=== PATIENT | male | born 1970 | race Caucasian/White ===

== ENCOUNTER → 2016-09-12 | Outpatient (CLI) | payer OTHER ==
[~2016-09-12] VITALS: Ht 167.6 cm; Wt 87.1 kg
[~2016-09-12] MED LIST: ABILIFY 5 MG TAB5 M1 PO; ADDERALL 30 MG30 MG PO; AMBIEN 5 MG TABL5 M1 PO; AMOXICILLIN 50500 MG PO; AVINZA 30 MG CA30 MG PO; AVINZA PO; CIPROFLOXACIN500 M3 PO; CLARITIN10 MG PO; CLONAZEPAM PO; DEPO-TESTO200 MG/1 M; DOLOPHINE HCL10 MG PO; EMBEDA ER 30-11 EACH PO; HUMIRA40 MG/0.8 SQ; LIORESAL 10 MG10 MG PO; LUNESTA2 MG PO; METFORMIN HCL500 MG PO; MORPHINE SULFAT15 M3 PO; MORPHINE SULFAT30 M2 PO; MS CONTIN 30 MG30 M1 PO; NEXIUM40 MG PO; PROZAC 10 MG CA10 M1 PO; RITALIN20 MG PO; ROBAXIN500 MG PO; VIAGRA100 MG PO; WELLBUTRIN XL150 M1 PO; ZANAFLEX4 M1 PO
--- NOTE | ~2016-09-12 | HPC ---
[facility] [place] [address] PAIN MANAGEMENT CONSULTATION Name: SOLOMON HOFFMAN Room #: REG MORGAN Inés.#: [id number] Admission: 09/12/16 Attend Phys: Deepthi Mccarthy MD Discharge: Date of : 66 Report #: [id number] THIS REPORT FOR: //name// CC: Shanique Koenig MD DATE OF SERVICE: 09/12/2016 FOLLOWUP COMPLAINT: My arm is going to sleep, left side and right. HISTORY OF PRESENT ILLNESS: The patient is a 46-year-old gentleman who has been seen in the pain clinic because of cervical radiculopathy. As you are aware, he continues to have pain and discomfort with cervical radiculopathy. He finds that epidural steroid injections have been helpful. He has returned today indicating that his pain continues to be problematic. He rates it as a 3/10 today. He notes that he is having pain in his neck as well as down both arms. Some numbness, weakness and tenderness in these areas. He has gleaned greater than 50% improvement after each cervical epidural steroid injection. He would like to proceed with another treatment course. PHYSICAL EXAMINATION: Blood pressure is 154/96, pulse 100, respiratory rate 16, room air saturation is 96%. The patient has pain and discomfort which he describes as a 3 today with use of his current medical regimen. RECOMMENDATIONS: We will proceed with another epidural steroid injection. We will have the patient try Embeda (morphine sulfate with naloxone). This medication has a deterrent for abuse. The patient does not abuse his medication, but finds that the $25 copay would be quite beneficial at this juncture. We will have him start on this medication 30 mg 1 p.o. daily as well as 15 mg immediate release morphine t.i.d. as needed. PROCEDURE NOTE: The patient was placed in the prone position. Fluoroscopy was used to identify the C7-T1 interspace. This area had been sterilely prepped with Betadine and infiltrated with 0.25% bupivacaine. Total of 80 mg Depo-Medrol, 40 mg triamcinolone and 2 mL of 0.25% bupivacaine was injected. The patient tolerated the procedure well. There were no complications. He remained in the pain clinic for an appropriate amount of time. He will follow up in the future as needed. We would like to thank you for letting us participate in his care. We hope he continues to improve. <ELECTRONICALLY SIGNED> By: Deepthi Mccarthy MD 09/18/16 0914 [id number] Deepthi Mccarthy MD /estephania
[2016-09-12 08:20] VITALS: BP 154/96
== END | disposition home or self-care (01) ==
LOC: PAIN 05:50
DX: M54.12 Radiculopathy, cervical region (principal); G89.29 Other chronic pain

== ENCOUNTER → 2017-01-30 | Outpatient (CLI) | payer OTHER ==
[~2017-01-30] VITALS: Ht 167.6 cm; Wt 87.2 kg
[~2017-01-30] MED LIST changes: +CARTIA XT120 M1 PO
--- NOTE | ~2017-01-30 | HPC ---
[facility] [address] [address] PAIN MANAGEMENT CONSULTATION Name: SOLOMON HOFFMAN Room #: REG MORGAN FarrisAmy#: [id number] Admission: 01/30/17 Attend Phys: Deepthi Mccarthy MD Discharge: Date of : 66 Report #: [id number] THIS REPORT FOR: //name// CC: Shanique Mccarthy DATE OF SERVICE: 01/30/2017 FOLLOWUP COMPLAINT: "I would like to get another cervical epidural injection, pain has worsened again." FOLLOWUP HISTORY: The patient is a 46-year-old gentleman who has been followed in the pain clinic because of cervical radiculopathy. He finds that his medications of morphine are helpful. He would like to have these medications renewed. He is not having any problems with the medications. He states that he keeps them in a guarded area. He rates his pain as a 6 at this juncture. He continues to have pain and discomfort radiating down into the arms and notes a constant aching pain radiating down into his arms. IMPRESSION: Cervical radiculopathy. The patient receives greater than 50% improvement after epidural steroid injections. RECOMMENDATIONS: We discussed the treatment options with the patient. Risk and benefits of the procedure were again reviewed. Possible complications were explained. The patient elects to proceed with the procedure and have his medications renewed. PROCEDURE NOTE: The patient was placed in the prone position. Fluoroscopy was used to identify the C7-T1 interspace. This area had been sterilely prepped with Betadine and infiltrated with 0.25% bupivacaine. A total of 120 mg triamcinolone was injected. The patient tolerated the procedure well. There were no complications. A total of 120 mg was injected, no complications were noted. He remained in the pain clinic for an appropriate amount of time. He will follow up in the future as needed. The area had been sterilely prepped with a chlorhexidine solution. By: [id number] Deepthi Mccarthy MD /nt
[2017-01-30 08:46] VITALS: BP 123/80
== END | disposition home or self-care (01) ==
LOC: PAIN 08:28
DX: M54.12 Radiculopathy, cervical region (principal)

== ENCOUNTER → 2017-05-27 | Outpatient (CLI) | payer OTHER ==
[~2017-05-27] VITALS: Ht 167.6 cm; Wt 86.6 kg
[~2017-05-27] MED LIST changes: +LIDOCAINE35.44 GM TOP; +LIVALO2 MG PO; +MS CONTIN15 MG PO
--- NOTE | ~2017-05-27 | HPC ---
[facility] [address] [address] PAIN MANAGEMENT CONSULTATION Name: SOLOMON HOFFMAN Room #: REG MORGAN Francia#: [id number] Admission: 05/27/17 Attend Phys: Deepthi Mccarthy MD Discharge: Date of : 66 Report #: [id number] THIS REPORT FOR: //name// CC: Shanique Mccarthy DATE OF SERVICE: 05/27/2017 FOLLOWUP COMPLAINT: "The pain continues in my neck and the insurance company said I could get an injection." FOLLOWUP HISTORY: The patient is a 47-year-old gentleman who has been followed in the pain clinic for quite a number of years. He suffers from cervical radiculopathy. He has found that cervical epidural steroid injections have been quite beneficial. He has noted an escalation in the pain and discomfort in his neck. It involves his arms bilaterally. It radiates down to below his elbows. He notes some numbness and weakness in these areas. He also has aching, throbbing and radiating discomfort. Pain is exacerbated when sitting and working at a computer. It is worse as the day wears on. Finds that his medications of morphine continued to be efficacious. He has had no complication from the previous injections. He continues to work on a daily basis. He notes that when the pain becomes problematic, activities are more problematic. ALLERGIES: TETRACYCLINE, REGLAN, INAPSINE, SHELLFISH, SULFA, COMPAZINE. CURRENT MEDICATIONS: Morphine sulfate 15 mg b.i.d., Zanaflex 4 mg q. 8 hours p.r.n., diltiazem 120 mg b.i.d., Ambien 5 mg at bedtime, metformin 500 mg b.i.d., Adderall 30 mg b.i.d., Wellbutrin 150 mg b.i.d., testosterone Depo 200 mcg, 0.5 mg with meals IM weekly, Nexium 40 mg, Humira 40 mg, Claritin 10 mg. PHYSICAL EXAMINATION: NEUROLOGIC: The patient is a well-developed, well-nourished white male who complains of pain and discomfort in his shoulders with pain radiating down into the level of his elbows. His affect is normal. Cranial nerves 2 through 12 are grossly within normal limits. HEART: Regular rate. LUNGS: Clear. ABDOMEN: Nontender/benign. IMPRESSION: 1. Cervical radiculopathy involving the arms C5-C6 distribution. 2. History of pancreatitis. 3. History of ulcerative colitis. 4[place] [address] PAIN MANAGEMENT CONSULTATION Name: SOLOMON HOFFMAN Room #: REG [facility].#: [id number] Admission: 05/27/17 Attend Phys: Deepthi Mccarthy MD Discharge: Date of : 66 Report #: [id number] 5. History of lumbar radiculopathy. RECOMMENDATIONS: 1. We discussed treatment options with the patient. Use of opioid medications and the new CDC guidelines have been reviewed. The patient states that he keeps his medications in a guarded environment. He takes medication as prescribed. He is having no problems with use of these medications. We discussed the possibility of dependence as well as the possibility of addiction. The patient feels that his medications gone working reasonably well and did not feel that those items pertained to him at this juncture. 2. We recommend a cervical epidural steroid injection to help with the pain radiating into his arms and forearm area. He has found that this is beneficial than beneficial in the past. No complication from the previous injections and he has been granted the ability to undergo this today by his insurance company. The patient would like to proceed. PROCEDURE NOTE: The patient was placed in the prone position. We had discussed the possible complication of the procedure, which could include but are not limited to infection, increased muscle soreness, headache, bleeding, nerve trauma. His back and neck area were sterilely prepped, 0.25% bupivacaine was infiltrated in the C7/T1 interspace. Fluoroscopy was used to identify the appropriate level. A 17-gauge Tuohy with loss of resistance technique was used to gain access to the epidural space. There was no CSF, heme or paresthesia. A total of 120 mg triamcinolone was injected. The patient's neck was evaluated. A Band-Aid was placed. There was no evidence of bleeding. He then was taken to the recovery room where he remained for an appropriate amount of time. He will follow up in the future as needed. We would like to thank you for letting us participate in his care. We hope he continues to improve. <ELECTRONICALLY SIGNED> By: Deepthi Mccarthy MD 07/15/17 0837 0919 1544 Deepthi Mccarthy MD /GRETCHEN
[2017-05-27 11:47] VITALS: BP 138/82
== END | disposition home or self-care (01) ==
LOC: PAIN 06:16
DX: M54.12 Radiculopathy, cervical region (principal); K52.9 Noninfective gastroenteritis and colitis, unspecified; M54.16 Radiculopathy, lumbar region; Z88.8 Allergy status to other drugs, medicaments and biological substances

== ENCOUNTER → 2017-11-06 | Outpatient (CLI) | payer OTHER ==
[~2017-11-06] VITALS: Ht 167.6 cm; Wt 79.8 kg
[~2017-11-06] MED LIST changes: -LIDOCAINE35.44 GM TOP
--- NOTE | ~2017-11-06 | HPC ---
[facility] [address] [address] PAIN MANAGEMENT CONSULTATION Name: SOLOMON HOFFMAN Room #: REG MORGAN SimmonsAmyLashell.#: [id number] Admission: 11/06/17 Attend Phys: Deepthi Mccarthy MD Discharge: Date of : 66 Report #: [id number] THIS REPORT FOR: //name// CC: Shanique Mccarthy DATE OF SERVICE: 11/06/2017 FOLLOWUP COMPLAINT: Here for a cervical epidural steroid injection. FOLLOWUP HISTORY: The patient is a 47-year-old gentleman who has been followed in the pain clinic. As you recall, he has had cervical radiculopathy. He has undergone surgery in the past. Continues to have pain, which waxes and wanes. Finds that opioid medications continue to be beneficial on a regular basis. He continues to be gainfully employed. Rates his pain as a 5/10 at this juncture. Does continue to have some pain and discomfort, which radiates down into his arms bilaterally. Involves the areas below his elbow with some numbness, tingling in this area. He has returned to the pain clinic for an epidural steroid injection. Notes that at work ergonomics is important. He finds that if his desk area is kept in ergonomic fashion, he has less pain and discomfort. He tries to strive for this. He would like to proceed with another epidural steroid injection. Finds his medications continue to be helpful. He is aware of the interaction between medicine and the patients regarding use of opioid medications prison. He feels that this medication is helpful, it able him to remain gainfully employed. He takes his medication as prescribed. He has returned for an injection. His insurance company has precertified him for a cervical epidural steroid injection, which often times are quite beneficial. ALLERGIES: TETRACYCLINE, REGLAN, AND INAPSINE, SHELLFISH, SULFA, COMPAZINE. CURRENT MEDICATIONS: Morphine 15 mg p.o. b.i.d., Zanaflex 40 mg 8 hours p.r.n., diltiazem 120 mg b.i.d., Ambien 5 mg at bedtime, metformin 500 mg b.i.d., Adderall 30 mg b.i.d., Wellbutrin 150 mg b.i.d., testosterone Depo 200 mcg, 0.5 mg with meals. IM weekly, Nexium 40 mg, Humira 40 mg, Claritin 40 mg, MS Contin 15 mg 1 p.o. b.i.d. PAIN CLINIC ASSESSMENT: 1. The patient has some osteoarthritic changes in his neck and chronic pain in other joints. 2. Height 5 feet 6 inches, weight 176 pounds, BMI is 28. 3. Vital signs: Blood pressure 127/85, pulse 97, respiratory rate 16, room air saturation 99%. 4. Pain intensity, 5. 5. Fall. The patient has not fallen in the last 3 months. 6. Blood thinner. The patient is not on a blood thinner. [address] [address] PAIN MANAGEMENT CONSULTATION Name: SOLOMON HOFFMAN Room #: MOSHE Feldman#: [id number] Admission: 11/06/17 Attend Phys: Deepthi Mccarthy MD Discharge: Date of : 66 Report #: [id number] 7. History of hypertension. The patient is not being treated for hypertension. 8. Opioid therapy greater than 6 weeks. The patient is on opioid contract with the pain clinic and gets his medication from only one source. 9. Risk assessment tool, 09/05 which is low for opioid use. 10. Functional assessment tool . 11. Recreational drug use. The patient denies use of recreational drugs. 12. Tobacco. The patient has never smoked tobacco. 13. Alcohol use. The patient denies frequent use of alcoholic beverages. PHYSICAL EXAMINATION: GENERAL: The patient is a well-developed white male. He appears his stated age. He is alert and oriented x 3. Affect is appropriate. Speech is fluent. HEENT: Normocephalic, atraumatic. Extraocular eye muscles intact. Sclerae nonicteric Hearing is within normal limits. Mucous membranes are moist. NECK: Without JVD or bruits, reasonable movement with flexion and extension. HEART: Regular rate S1, S2. LUNGS: Clear to auscultation without crackles or rhonchi. ABDOMEN: Nontender. EXTREMITIES: Upper 5/5 for the muscle strength. Has notes of some slight sensory changes with some numbness and tingling down into his hands and into his arms, right side greater than left lower extremity. Lower extremity muscle strength judged to be 5/5 for the major muscle groups of the lower extremity without sensory changes and with muscle symmetry. IMPRESSION: 1. Cervical radiculopathy with pain and discomfort in the dermatomal distribution involving the left and right upper extremity. 2. History of pancreatitis. 3. History of ulcerative colitis. 4. History of renal stones. 5. History of lumbar radicular pain. 6. Improved pneumonia symptomatology. RECOMMENDATIONS: We discussed treatment options with the patient. At this juncture, things are going reasonably well. He is over the pneumonia episode, which he was hospitalized for at . He has returned today for an epidural steroid injection involving the upper extremity. He generally receives significant improvement with the injection and has returned for treatment. Risks and benefits of the procedure, which could include infection, increased muscle soreness, headache, bleeding, worsening of pain, trauma, paralysis were discussed. The patient elects to proceed. PROCEDURE NOTE: The patient was assisted in getting on the examination table. His neck was sterilely prepped with a Betadine solution. Fluoroscopy using anterior, posterior as well as lateral viewing was used to identify the C7-T1 interspace. A midline approach was used. A 17-gauge Tuohy with loss of [address] [address] PAIN MANAGEMENT CONSULTATION Name: SOLOMON HOFFMAN Room #: REG [facility].#: [id number] Admission: 11/06/17 Attend Phys: Deepthi Mccarthy MD Discharge: Date of : 66 Report #: [id number] resistance technique was used to gain access to the epidural space. There was no CSF, heme or paresthesia. A total of 120 mg triamcinolone was injected. The patient tolerated the procedure well. There were no complications. The patient remained in the pain clinic for an appropriate amount of time. His pain was rated as 6/10 at the time of discharge. Total of 9 seconds fluoroscopy time was used. We would like to thank you for letting us participate in his care. He will call us if he has any concerns. <ELECTRONICALLY SIGNED> By: Deepthi Mccarthy MD 11/13/17 0902 1715 [id number] MD emily Chau
[2017-11-06 08:21] VITALS: BP 127/85
== END | disposition home or self-care (01) ==
LOC: PAIN 08:08
DX: M54.12 Radiculopathy, cervical region (principal); G89.29 Other chronic pain; M54.16 Radiculopathy, lumbar region; Z87.19 Personal history of other diseases of the digestive system; Z87.442 Personal history of urinary calculi; Z79.891 Long term (current) use of opiate analgesic; Z88.2 Allergy status to sulfonamides; Z88.8 Allergy status to other drugs, medicaments and biological substances; Z79.899 Other long term (current) drug therapy

== ENCOUNTER → 2018-03-31 | Outpatient (CLI) | payer OTHER ==
[~2018-03-31] VITALS: Ht 167.6 cm; Wt 83.2 kg
[~2018-03-31] MED LIST changes: +LIDOCAINE35.44 GM TOP
--- NOTE | ~2018-03-31 | HPC ---
[facility] [address] [address] PAIN MANAGEMENT CONSULTATION Name: SOLOMON HOFFMAN Room #: REG MORGAN Francia#: [id number] Admission: 03/31/18 Attend Phys: Deepthi Mccarthy MD Discharge: Date of : 66 Report #: [id number] THIS REPORT FOR: //name// CC: Shanique Mccarthy DATE OF SERVICE: 03/31/2018 CHIEF COMPLAINT: The patient is here for medication renewal and I would like to get an epidural injection in the future. FOLLOWUP HISTORY: The patient is a 48-year-old gentleman, who has been followed in the pain clinic because of chronic pain. As you recall, he suffers from cervical radiculopathy. He has undergone cervical surgery in the past with fusion. He notes that his pain continues to wax and wane. He finds that his opioid medication regimen is reasonably helpful. At this juncture, he has noticed an increase of his pain. He rates his pain as a 7-8/10. He is having pain and numbness that radiates down into his elbow with some tingling into this area. He finds that his work environment somewhat affects his pain. He has not had any trauma since we saw him last. He notes that he is having pain that is radiating down into both arms, right side is worse and radiates into his armpit been down to the level of elbow. He notes that it is hard for him to get up from a lying position to a seated or standing position. The patient noted 100% improvement after the 11/2017 injection until about 3 weeks ago. CURRENT MEDICATIONS: Morphine 15 mg b.i.d., Zanaflex 40 mg q.8 hours p.r.n., diltiazem 120 mg b.i.d., Ambien 5 mg at bedtime, metformin 500 mg b.i.d., Adderall 30 mg b.i.d., Wellbutrin 150 mg b.i.d., testosterone Depo 200 mcg, IM weekly; Nexium 40 mg, Humira 40 mg, Claritin 40 mg, and MS Contin 15 mg 1 p.o. b.i.d. ALLERGIES: THE PATIENT IS ALLERGIC TO TETRACYCLINE, REGLAN, INAPSINE, SHELLFISH, SULFA, AND COMPAZINE. PAIN CLINIC ASSESSMENT AND PQRS: 1. The patient has some osteoarthritic changes in his neck and some chronic pain in other joints. He is not being treated for rheumatoid arthritis. 2. Pain intensity is 8/10. 3. Fall risk. The patient has not fallen in the last 3 months. 4. Blood thinner. The patient is not on a blood thinning medication. 5. History of hypertension. The patient is not being treated for hypertension. 6. Opioid therapy. The patient receives his opioid medication from one source, the pain clinic. 7. Risk assessment tool, using opioids, risk is low, 3/3. 8. Functional assessment tool 56/70. 9. Recreational drug use: The patient denies. [address] [address] PAIN MANAGEMENT CONSULTATION Name: SOLOMON HOFFMAN Room #: REG MORGAN Feldman#: [id number] Admission: 03/31/18 Attend Phys: Deepthi Mccarthy MD Discharge: Date of : 66 Report #: [id number] 10. Tobacco: The patient denies use of tobacco and has never smoked. 11. Alcohol. He denies frequent use of alcoholic medications. PHYSICAL EXAMINATION: GENERAL: The patient is a well-developed, well-nourished white male. He appears his stated age. He is alert and oriented x 3. His affect is appropriate. Speech is fluent. Height is 5 feet 6 inches, weight is 184 pounds, and BMI is 29. VITAL SIGNS: Blood pressure is 149/90, pulse is 100, respiratory rate is 16, and room air saturation is 100%. HEENT: Normocephalic, atraumatic. Extraocular eye muscles intact. Sclerae nonicteric. Hearing is within normal limits. Mucous membranes are moist. NECK: Without JVD or bruits, reasonable movement with flexion and extension. HEART: Regular rate. S1, S2. LUNGS: Clear to auscultation without crackles or rales. ABDOMEN: Nontender. EXTREMITIES: Upper extremity strength is judged to be 5/5 for the major muscle groups. The patient notes a slight decrease in sensory sensation in the right neck, shoulder, arm, axilla, and radiating down into his elbow. He notes some discomfort in the contralateral left side as well. Muscle strength is judged to be 5-/5 for the major muscle groups in the upper extremity. The patient has muscle strength in the lower extremities judged to be 5/5 without sensory changes or pain. IMPRESSION: 1. Cervical radiculopathy with pain and discomfort in the dermatomal distribution involving the left and right upper extremity. 2. History of pancreatitis. 3. History of ulcerative colitis. 4. History of renal stones. 5. History of lumbar radicular pain, improved. 6. Pneumonia symptomatology. RECOMMENDATIONS: We have discussed treatment options with the patient. Risks and benefits of a cervical epidural steroid injection were again reviewed. The patient states that he would like to proceed with another injection. He will follow up as soon as his insurance company provides him the opportunity. He has received greater than 50% improvement. He has cervical radiculopathy and has undergone surgery. He has had physical therapy activities and continues to do stretching exercises. He has continued with oral medication therapy as well. [facility] [address] [place] [address] PAIN MANAGEMENT CONSULTATION Name: SOLOMON HOFFMAN Room #: REG [facility].#: [id number] Admission: 03/31/18 Attend Phys: Deepthi Mccarthy MD Discharge: Date of : 66 Report #: [id number] We would like to thank you for letting us participate in his care. We hope he continues to improve. <ELECTRONICALLY SIGNED> By: Deepthi Mccarthy MD 04/19/18 1124 1754 0230 Deepthi Mccarthy MD /GRETCHEN
[2018-03-31 08:57] VITALS: BP 149/90
== END ==
LOC: PAIN 06:39
DX: M54.2 Cervicalgia (principal); M79.601 Pain in right arm; M79.602 Pain in left arm; G89.29 Other chronic pain; Z79.899 Other long term (current) drug therapy

== ENCOUNTER → 2018-04-21 | Outpatient (CLI) | payer OTHER ==
[~2018-04-21] VITALS: Ht 167.6 cm; Wt 81.3 kg
[2018-04-21 09:57] VITALS: BP 137/91
== END | disposition home or self-care (01) ==
LOC: PAIN 06:59
DX: M54.12 Radiculopathy, cervical region (principal); G89.29 Other chronic pain; Z88.2 Allergy status to sulfonamides; Z88.8 Allergy status to other drugs, medicaments and biological substances; Z79.899 Other long term (current) drug therapy

== ENCOUNTER → 2019-02-16 | Outpatient (CLI) | payer OTHER ==
[~2019-02-16] VITALS: Ht 167.6 cm; Wt 79.0 kg
[~2019-02-16] MED LIST changes: +PROTONIX40 M2 PO; +SINGULAIR 10 MG10 M1 PO
--- NOTE | ~2019-02-16 | HPC ---
[facility] [address] [address] PAIN MANAGEMENT CONSULTATION Name: SOLOMON HOFFMAN Room #: REG COLBYAyesha Feldman#: [id number] Admission: 02/16/19 Attend Phys: Deepthi Mccarthy MD Discharge: Date of : 66 Report #: [id number] THIS REPORT FOR: //name// CC: Shanique Mccarthy DATE OF SERVICE: 02/16/2019 HISTORY: "The injection lasted for months, but my pain has returned." HISTORY: The patient is a 48-year-old gentleman who has been followed in the pain clinic since 2007. He has a history of cervical radiculopathy. He has undergone cervical epidural steroid injections to help improve his discomfort. He has noted good results from injections in the past. He describes his pain as a 7/10 at this juncture. He has had problems with a C6-C5 radiculopathy. He has undergone surgery to help decrease the discomfort. Things went relatively well, but then he has noticed a recurrence of his pain. He has been undergoing cervical epidural steroid injections as tolerated. His surgeon has recommended that he continue with the cervical epidural steroid injections until they are no longer efficacious. He has returned today with the hopes of undergoing a cervical epidural steroid injection. He had greater than 4 months of improvement. The patient has moved. Quite a bit of activity has occurred since we saw him last in 04/2018. Also, has a history of lumbar radicular pain that is stable at this juncture. He feels that his medications of feels that his medications of MS Contin and morphine immediate release with a muscle relaxant are beneficial. ALLERGIES: TETRACYCLINE, REGLAN, NAPROSYN, SHELLFISH, SULFA, COMPAZINE. CURRENT MEDICATIONS: Morphine 15 mg 1 p.o. b.i.d., Zanaflex 4 mg q.8 hours p.r.n., diltiazem 120 mg b.i.d., Ambien 5 mg at bedtime, metformin 500 mg b.i.d., Adderall 30 mg b.i.d., Wellbutrin 150 mg b.i.d., testosterone Depo 200 mcg IM weekly, Nexium 40 mg, Humira 40 mg. PAIN CLINIC ASSESSMENT/PQRS: 1. The patient has some osteoarthritic changes involving his neck and has chronic pain in his joints. He is being treated for rheumatoid arthritis. 2. Height 5 feet 6 inches, weight 174 pounds, BMI is 28.1. 3. Vital signs: Blood pressure 123/90, pulse 95, respiratory rate 16, room air saturation 100. 4. Pain intensity, 7/10. 5. Fall history: The patient has not fallen in the last 3 months. 6. Blood thinner. The patient is not on a blood thinning medication. 7. Hypertension. The patient is not being treated for hypertension. 8. Opioids greater than 6 weeks. The patient receives medication from one source, the pain clinic. [address] [address] PAIN MANAGEMENT CONSULTATION Name: SOLOMON HOFFMAN Room #: REG MORGAN Feldman#: [id number] Admission: 02/16/19 Attend Phys: Deepthi Mccarthy MD Discharge: Date of : 66 Report #: [id number] 9. Risk assessment tool, low for opioid use, 09/05 10. Functional assessment tool, 56/70. 11. Recreational drug use. The patient denies. 12. Tobacco: The patient has never smoked. 13. Alcohol: The patient denies use of alcoholic beverages. PHYSICAL EXAMINATION: GENERAL: The patient is a well-developed, well-nourished white male. Appears his stated age. He is alert and oriented x 3. His affect is appropriate. Speech is fluent. HEENT: Normocephalic, atraumatic. Extraocular eye muscles intact. Sclerae nonicteric. NECK: Without JVD or bruits with some limitation of flexion and extension, status post surgery. HEART: Regular rate. S1, S2. LUNGS: Clear to auscultation without rhonchi or rales. ABDOMEN: Nontender. Bowel sounds present. MUSCULOSKELETAL: Upper extremity muscle strength judged to be 5-/5 for the major muscle groups in the upper extremity. The patient has some decreased sensory in his right neck, shoulder, arm and down into his arm with numbness and tingling down into his fingers. Has some discomfort on the left side as well. This radiates down to his left arm and forearm. The patient has a positive Spurling sign. Muscle strength judged to be 5/5 for the major muscle groups in the lower extremity. IMPRESSION: 1. Cervical radiculopathy with sensory changes involving the left and right upper extremity with numbness and tingling down into his fingers with decreased sensory to light touch. 2. History of pancreatitis. 3. History of ulcerative colitis. 4. Renal cell stones, renal stones. 5. History of lumbar radicular pain. 6. Status post pneumonia. RECOMMENDATIONS: We discussed treatment options with the patient. At this juncture, he feels that the cervical epidural steroid injections, which he received about 4 months ago have been quite beneficial. He has moved into a new home. He has noted some increased pain and discomfort and his pain level was risen to that of 7/10. He would like to proceed with an epidural steroid injection. These have always been beneficial and improvement. The patient at this juncture is not interested in undergoing additional surgery. He has had surgery on his neck as well as back. It is his surgeon. We would recommend that he continue with cervical epidural steroid injections until which point they were no longer beneficial. He is now noticing numbness, [facility] [address] [place] [address] PAIN MANAGEMENT CONSULTATION Name: SOLOMON HOFFMAN [facility] [id number] Admission: 02/16/19 Attend Phys: Deepthi Mccarthy MD Discharge: Date of : 66 Report #: [id number] tingling down his arm. He has a positive Spurling maneuver. We have petitioned his insurance carrier to provide him the benefit of a cervical epidural steroid injection, which over the years, have been quite beneficial and helpful. We would like to thank you for letting us participate in his care. We hope he continues to improve. By: [id number] Deepthi Mccarthy MD /nt
[2019-02-16 09:24] VITALS: BP 123/90
--- NOTE | 2019-02-16 09:33 | NUR ---
Pain Clinic Assessment: 1. History of Osteoarthritis: EVERYWHERE History of Rheumatoid Arthritis: Not Applicable 2. Height: 5 ft. 6 in. 167.6 cm. Weight: 174.2 lb. oz. 79.017 kg. Patient's BMI: 28.1 3. Vital Signs: BP: 123/90 Pulse: 95 Resp: 16 Temp: 02 Sat: 100 ECG Mon: 4. Pain Intensity: 7 5. Fall Risk: Dizziness: N Needs help standing or walking: N Fallen in the last 3 months: N Fall risk comments: 6. Patient on Blood Thinner: None 7. History of Hypertension: N 8. Opioid Therapy greater than 6 weeks: Y Opiate Contract Signed: 02/02/08 9. Risk Assessment Tool Provided: LOW RISK 09/05 10. Functional Assessment Tool: 11. Recreational Drug Use: Never Drug Type: Tobacco Use: Never Smoker Tobacco Type: Amount or Packs/day: How Many Years: Alcohol Use: No Frequency: Quant:
== END ==
LOC: PAIN 12-29 07:56
DX: M54.12 Radiculopathy, cervical region (principal); M54.16 Radiculopathy, lumbar region; K85.90 Acute pancreatitis without necrosis or infection, unspecified; K51.90 Ulcerative colitis, unspecified, without complications; N28.1 Cyst of kidney, acquired; Z79.899 Other long term (current) drug therapy; Z88.8 Allergy status to other drugs, medicaments and biological substances; Z88.2 Allergy status to sulfonamides; Z91.013 Allergy to seafood

== ENCOUNTER → 2019-03-22 | Outpatient (CLI) | payer OTHER | LOC: MRI 06:33 | DX: M47.22 Other spondylosis with radiculopathy, cervical region (principal); M50.11 Cervical disc disorder with radiculopathy, high cervical region; M48.02 Spinal stenosis, cervical region ==

== ENCOUNTER → 2019-03-30 | Outpatient (CLI) | payer OTHER ==
[~2019-03-30] VITALS: Ht 167.6 cm; Wt 78.4 kg
--- NOTE | ~2019-03-30 | HPC ---
[facility] [place] [address] PAIN MANAGEMENT CONSULTATION Name: SOLOMON HOFFMAN Room #: REG MORGAN Feldman#: [id number] Admission: 03/30/19 Attend Phys: Deepthi Mccarthy MD Discharge: Date of : 66 Report #: [id number] THIS REPORT FOR: //name// CC: Shanique Mccarthy DATE OF SERVICE: 03/30/2019 CHIEF COMPLAINT: Here for cervical epidural injection. HISTORY: The patient is a 49-year-old gentleman who has been followed in the pain clinic because of cervical radiculopathy. In the past, he has undergone epidural steroid injections. These have proven quite beneficial. He has returned today. His insurance carrier has granted him the ability to undergo an injection today. He has found that these are quite beneficial. He has been having pain that has been radiating down into his arm and down into the forearm and fingers. Finds that his medications of MS Contin are quite helpful. He has continued to take his medications without problem. ALLERGIES: TETRACYCLINE, REGLAN, NAPROSYN, SHELLFISH, SULFA, AND COMPAZINE. CURRENT MEDICATIONS: Morphine 15 mg 1 p.o. b.i.d., Zanaflex 4 mg q.8 hours p.r.n., diltiazem 120 mg b.i.d., Ambien 5 mg at bedtime, metformin 500 mg b.i.d., Adderall 30 mg b.i.d., Wellbutrin 150 mg b.i.d., testosterone Depo 200 mcg IM weekly, Nexium 40 mg, and Humira 40 mg. PAIN CLINIC ASSESSMENT/PQRS: 1. The patient does have some osteoarthritic changes involving his neck and has had chronic pain in his joints. He has been treated in the past for rheumatoid arthritis. 2. Height 5 feet 6 inches, weight 172 pounds, BMI is 27.9. 3. Vital signs: Blood pressure 153/99, pulse 108, respiratory rate 16, room air saturation 98%. 4. Pain intensity 01/12. 5. Fall history: The patient has not fallen in the last 3 months. 6. Blood thinner. The patient is not on a blood thinning medication. 7. Hypertension. The patient is not being treated for hypertension. 8. Opioids greater than 6 weeks. The patient receives medication from 1 source, the pain clinic. 9. Risk assessment tool, low for opioid use. 10. Functional assessment tool, 56/70. 11. Recreational drug use. The patient denies. 12. Tobacco: The patient has never smoked. 13. Alcohol. The patient denies frequent use of alcoholic beverages. [facility] [address] [place] [address] PAIN MANAGEMENT CONSULTATION Name: SOLOMON HOFFMAN Room #: REG MORGAN Feldman#: [id number] Admission: 03/30/19 Attend Phys: Deepthi Mccarthy MD Discharge: Date of : 66 Report #: [id number] PHYSICAL EXAMINATION: GENERAL: The patient is a well-developed, well-nourished white male. Appears his stated age. He is alert and oriented x 3. His affect is appropriate. Speech is fluent. HEENT: Normocephalic, atraumatic. Extraocular eye muscles intact. Sclerae nonicteric. Mucous membranes are moist. NECK: Without adenopathy or JVD. HEART: Regular rate. S1, S2. LUNGS: Clear to auscultation without rhonchi or rales. ABDOMEN: Nontender. Bowel sounds present. MUSCULOSKELETAL: The patient has some pain and discomfort in his arms, left and right. Flexion and extension and some increased pain with Spurling's maneuver. Upper extremity muscle strength is judged to be 5/5 for the major muscle groups in the upper extremity. The patient has some decreased sensory findings in his right neck, shoulder, and down into his arm with numbness and tingling involving his fingers. The patient has some discomfort on the left side as well. The patient has pain that radiates down to his left arm and into his forearm. Muscle strength is judged to be 5/5 for the major muscle groups in the lower extremity. IMPRESSION: 1. Cervical radiculopathy with sensory changes in the left and the right upper extremity with numbness and tingling down into his fingers with decreased sensory and light touch. 2. History of pancreatitis. 3. History of ulcerative colitis. 4. Renal stones. 5. History of lumbar radicular pain, status post lumbar surgery. 6. Status post pneumonia. 7. Has stopped taking Humira. RECOMMENDATIONS: We discussed treatment options with the patient. At this juncture, he is having pain and discomfort, which has improved in the past with epidural steroid injections. He has returned today with hopes of undergoing an epidural injection. The patient states that he has had some problems with his immune system. He has stopped taking Humira. He developed some infection. States that the E.coli was cultured, which has been resistant to most antibiotics. The patient would like to proceed today with an epidural steroid injection to help control and decrease pain and discomfort he is having in the neck area. Risks and benefits of the procedure were discussed. They include but are not limited to infection, worsening of pain, no improvement in pain, increased nerve irritation, possibility of paralysis, possibility of increased muscle soreness and bleeding. The patient elects to proceed. PROCEDURE NOTE: The patient was taken to the procedure area. He was then assisted in getting on examination table. His back was sterilely prepped with a [facility] [address] [place] [address] PAIN MANAGEMENT CONSULTATION Name: SOLOMON HOFFMAN Room #: REG [facility].#: [id number] Admission: 03/30/19 Attend Phys: Deepthi Mccarthy MD Discharge: Date of : 66 Report #: [id number] Betadine solution in the cervical area. A 0.25% bupivacaine was infiltrated at the C7-T1 interspace. A 0.25% bupivacaine was infiltrated using a 25-gauge needle. A 17-gauge Tuohy using midline approach was then undertaken. Aspiration was negative. A total of 120 mg triamcinolone was injected. The patient tolerated the procedure well. There were no complications. He remained in the pain clinic for an appropriate amount of time. He will follow up in the future as needed. Total of 14 seconds fluoroscopy time was used. We would like to thank you for letting us participate in his care. We hope he continues to improve. By: [id number] Deepthi Mccarthy MD /GRETCHEN
[2019-03-30 10:23] VITALS: BP 153/99
--- NOTE | 2019-03-30 10:34 | NUR ---
Pain Clinic Assessment: 1. History of Osteoarthritis: EVERYWHERE History of Rheumatoid Arthritis: Not Applicable 2. Height: 5 ft. 6 in. 167.6 cm. Weight: 172.8 lb. oz. 78.382 kg. Patient's BMI: 27.9 3. Vital Signs: BP: 153/99 Pulse: 108 Resp: 16 Temp: 02 Sat: 98 ECG Mon: 4. Pain Intensity: 7 5. Fall Risk: Dizziness: N Needs help standing or walking: N Fallen in the last 3 months: N Fall risk comments: 6. Patient on Blood Thinner: None 7. History of Hypertension: N 8. Opioid Therapy greater than 6 weeks: Y Opiate Contract Signed: 02/02/08 9. Risk Assessment Tool Provided: LOW RISK 09/05 10. Functional Assessment Tool: 11. Recreational Drug Use: Never Drug Type: Tobacco Use: Never Smoker Tobacco Type: Amount or Packs/day: How Many Years: Alcohol Use: No Frequency: Quant:
== END | disposition home or self-care (01) ==
LOC: PAIN 07:00
DX: M54.2 Cervicalgia (principal); M54.12 Radiculopathy, cervical region; M19.90 Unspecified osteoarthritis, unspecified site; I10 Essential (primary) hypertension; Z88.8 Allergy status to other drugs, medicaments and biological substances; Z88.2 Allergy status to sulfonamides; Z79.899 Other long term (current) drug therapy; Z79.84 Long term (current) use of oral hypoglycemic drugs

== ENCOUNTER → 2019-06-24 | Outpatient (CLI) | payer BC, OTHER ==
[~2019-06-24] VITALS: Ht 167.6 cm; Wt 78.0 kg
--- NOTE | ~2019-06-24 | HPC ---
[facility] [address] [address] PAIN MANAGEMENT CONSULTATION Name: SOLOMON HOFFMAN Room #: REG MORGAN Feldman#: [id number] Admission: 06/24/19 Attend Phys: Deepthi Mccarthy MD Discharge: Date of : 66 Report #: [id number] THIS REPORT FOR: //name// CC: Shanique Mccarthy DATE OF SERVICE: 06/24/2019 CHIEF COMPLAINT: Neck pain has recurred and "I am here for an epidural injection." HISTORY: The patient is a 48-year-old gentleman who has been followed in the pain clinic because of chronic neck pain. He has had problems since 2007. He has a history of cervical radiculopathy. Epidural steroid injections continue to be helpful and improve his level of comfort. He usually has pain that radiates down his arm in the C5-C6 distribution. He has returned to the pain clinic for an epidural injection. He has had no complications from them in the past. Also, has a history of lumbar radicular pain, which is stable at this juncture. ALLERGIES: TETRACYCLINE, REGLAN, NAPROSYN, SHELLFISH, SULFA, COMPAZINE. CURRENT MEDICATIONS: Morphine 15 mg 1 p.o. b.i.d., Zanaflex 4 mg q.8 hours, diltiazem 120 mg b.i.d., Ambien 5 mg at bedtime, metformin 500 mg b.i.d., Adderall 30 mg b.i.d., Wellbutrin 150 mg, testosterone Depo 200 mcg IM weekly, Nexium 40 mg, Humira 40 mg. PAIN CLINIC ASSESSMENT/PQRS: 1. The patient has some osteoarthritic changes involving his neck as well as pain in his joints. He is being treated for rheumatoid arthritis in the past. 2. Height 5 feet 6 inches, weight 172 pounds, BMI is 27.8. 3. Vital signs: Blood pressure 128/80, pulse 102, respiratory rate 14, room air saturation 97%. 4. Pain intensity 02/12. 5. Fall history: The patient has not fallen in the last 3 months. 6. Blood thinner. The patient is not on a blood thinning medication. 7. Hypertension. The patient is not being treated for hypertension. 8. Opioids greater than 6 weeks. The patient receives medication from one source, pain clinic. 9. Risk assessment tool, low for opioid use. 10. Functional assessment tool, 56/70. 11. Recreational drugs: The patient denies. 12. Tobacco: The patient has never smoked. 13. Alcohol. The patient denies frequent use of alcoholic beverages. PHYSICAL EXAMINATION: [facility] [address] [place] [address] PAIN MANAGEMENT CONSULTATION Name: SOLOMON HOFFMAN Room #: REG [facility] [place].#: [id number] Admission: 06/24/19 Attend Phys: Deepthi Mccarthy MD Discharge: Date of : 66 Report #: [id number] GENERAL: The patient is a well-developed, well-nourished white male. Appears his stated age. He is alert and oriented x 3. His affect is appropriate. Speech is fluent. HEENT: Normocephalic, atraumatic. Extraocular eye muscles intact. Sclerae nonicteric. Mucous membranes are moist. NECK: The patient has pain and discomfort in his neck with some limitation of flexion and extension. He has pain, which radiates down into the left and right upper extremity with numbness and tingling in his fingers with decreased sensation to light touch. IMPRESSION: 1. Cervical radiculopathy with sensory changes involving the left and right upper extremity with numbness and tingling down into his fingers. 2. History of pancreatitis. 3. History of ulcerative colitis. 4. Renal stones. 5. Lumbar radicular pain. 6. Status post pneumonia. RECOMMENDATIONS: We discussed treatment options with the patient. Risks and benefits of an epidural steroid injection were discussed. Possible complications of the procedure, which could include but are not limited to infection, worsening of pain, no improvement in pain, nerve damage, and paralysis were discussed. The patient elects to proceed. PROCEDURE NOTE: The patient was taken to the procedure area. He was then sterilely prepped with a Betadine solution. A 0.25% bupivacaine was infiltrated. A 17-gauge Tuohy with loss of resistance technique was used to gain access to the epidural space. There was no CSF, heme or paresthesia. At the C7/T1 area, this area had been sterilely prepped. The patient tolerated the procedure well. Anterior, posterior as well as lateral viewing with fluoroscopy was undertaken. The patient tolerated the procedure well. He was then taken to the recovery room where he remained for an appropriate amount of time. He will follow up in the future as needed. We would like to thank you for letting us participate in his care. We hope he continues to improve. The patient's pain was 8 at the time of discharge. Total of 15 seconds fluoroscopy time was used. By: [id number] Deepthi Mccarthy MD /nt
[2019-06-24 13:41] VITALS: BP 128/87
--- NOTE | 2019-06-24 13:45 | NUR ---
Pain Clinic Assessment: 1. History of Osteoarthritis: PT STATES ALL JOINTS History of Rheumatoid Arthritis: DENIES 2. Height: 5 ft. 6 in. 167.6 cm. Weight: 172.0 lb. oz. 78.019 kg. Patient's BMI: 27.8 3. Vital Signs: BP: 128/87 Pulse: 102 Resp: 14 Temp: 02 Sat: 97 ECG Mon: 4. Pain Intensity: 8 5. Fall Risk: Dizziness: N Needs help standing or walking: N Fallen in the last 3 months: N Fall risk comments: 6. Patient on Blood Thinner: None 7. History of Hypertension: N 8. Opioid Therapy greater than 6 weeks: Y Opiate Contract Signed: 02/02/08 9. Risk Assessment Tool Provided: LOW RISK 09/05 10. Functional Assessment Tool: 11. Recreational Drug Use: Never Drug Type: Tobacco Use: Never Smoker Tobacco Type: Amount or Packs/day: How Many Years: Alcohol Use: No Frequency: Quant:
== END | disposition home or self-care (01) ==
LOC: PAIN 06:50
DX: M54.12 Radiculopathy, cervical region (principal); G89.29 Other chronic pain; M54.16 Radiculopathy, lumbar region; M19.90 Unspecified osteoarthritis, unspecified site; Z87.19 Personal history of other diseases of the digestive system; Z87.442 Personal history of urinary calculi; Z98.890 Other specified postprocedural states; Z79.899 Other long term (current) drug therapy; Z88.2 Allergy status to sulfonamides; Z88.8 Allergy status to other drugs, medicaments and biological substances

== ENCOUNTER → 2020-09-21 | Outpatient (CLI) | payer BC, OTHER ==
[~2020-09-21] VITALS: Ht 167.6 cm; Wt 92.3 kg
[~2020-09-21] MED LIST changes: +NEURONTIN 300M300 M2 PO
[2020-09-21 13:24] VITALS: BP 103/73
--- NOTE | 2020-09-21 14:00 | NUR ---
Pain Clinic Assessment: 1. History of Osteoarthritis: PT STATES ALL JOINTS History of Rheumatoid Arthritis: DENIES 2. Height: 5 ft. 6 in. 167.6 cm. Weight: 203.4 lb. oz. 92.262 kg. Patient's BMI: 32.8 3. Vital Signs: BP: 103/73 Pulse: 103 Resp: 14 Temp: 02 Sat: 97 ECG Mon: 4. Pain Intensity: 7 5. Fall Risk: Dizziness: N Needs help standing or walking: Fallen in the last 3 months: Y Fall risk comments: 6. Patient on Blood Thinner: None 7. History of Hypertension: N 8. Opioid Therapy greater than 6 weeks: Y Opiate Contract Signed: 02/02/08 9. Risk Assessment Tool Provided: LOW RISK 09/05 10. Functional Assessment Tool: 11. Recreational Drug Use: Never Drug Type: Tobacco Use: Never Smoker Tobacco Type: Amount or Packs/day: How Many Years: Alcohol Use: No Frequency: Quant:
== END ==
LOC: PAIN 06:55
PROVIDERS: ATTEND Anesthesiology Pain Medicine
DX: M54.12 Radiculopathy, cervical region (principal); R20.2 Paresthesia of skin; N20.0 Calculus of kidney; M54.16 Radiculopathy, lumbar region; Z87.01 Personal history of pneumonia (recurrent); Z85.07 Personal history of malignant neoplasm of pancreas; Z87.19 Personal history of other diseases of the digestive system; Z88.8 Allergy status to other drugs, medicaments and biological substances; Z79.899 Other long term (current) drug therapy